=== PATIENT | male | born 1960 | race Caucasian/White ===

== ENCOUNTER 2016-09-20 23:38 | Emergency (ER) | payer MEDICARE ==
[2010-09-09 17:39] VITALS: BMI 24.1
== END 2016-09-21 01:43 | disposition home or self-care (01) ==
LOC: D.ER 23:38
DX: S09.90XA Unspecified injury of head, initial encounter (principal); X58.XXXA Exposure to other specified factors, initial encounter; Y93.89 Activity, other specified; Y92.89 Other specified places as the place of occurrence of the external cause; S01.01XA Laceration without foreign body of scalp, initial encounter; G40.909 Epilepsy, unspecified, not intractable, without status epilepticus

== ENCOUNTER → 2018-04-08 12:57 | Outpatient (CLI) | payer MEDICARE ==
[2010-09-09 17:39] VITALS: BMI 24.1
[2018-04-08 13:34] LABS: BASOPHILS 0.5 % (0-2); HEMATOCRIT 47.9 % (42.0-54.0); HEMOGLOBIN 16.4 g/dL (13.5-17.5); IMMATURE GRANULOCYTES 0.5 % (0-5); LYMPHOCYTES 19.8 % (15-50); MCH 33.1 pg (26.0-34.0); MCHC 34.2 g/dL (31.0-37.0); MCV 96.8 fL (80.0-100.0); MEAN PLATELET VOLUME 10.5 fL (7.4-10.4); MONOCYTES 11.1 % (2-11); NEUTROPHILS 67.1 % (40-80); PLATELET COUNT 176 10x3/uL (130-400); RBC 4.95 10x6/uL (4.20-6.10); RDW 13.5 % (11.5-14.5)
[2018-04-08 13:54] LABS: ALBUMIN 4.1 g/dL (3.4-5.0); ANION GAP 11.5 mmol/L (8-16); BILIRUBIN - TOTAL 0.51 mg/dL (0.2-1.3); CALCIUM 8.9 mg/dL (8.5-10.1); CARBON DIOXIDE 26.6 mmol/L (21.0-32.0); CREATININE - SERUM 1.3 mg/dL (0.6-1.3); POTASSIUM - SERUM 4.1 mmol/L (3.5-5.1); PROTEIN - SERUM 6.6 g/dL (6.4-8.2)
== END | disposition home or self-care (01) ==
LOC: D.LAB 12:57
DX: R56.9 Unspecified convulsions (principal)

== ENCOUNTER 2019-02-28 20:23 | Emergency (ER) | payer MEDICARE ==
[~2019-02-28] VITALS: Ht 177.8 cm; Wt 72.7 kg
[2019-02-28 20:26] VITALS: Ht 177.8 cm; Wt 72.7 kg
[2019-02-28] MEDS ORDERED: ZONEGRAN100 MG (21:23)
[2019-02-28] MEDS ORDERED: VIMPAT50 MG PO (21:23)
[2019-02-28] MEDS ORDERED: FOLIC ACID1 MG PO (21:24)
[2019-02-28] MEDS ORDERED: ONFI10 MG (21:24)
[2019-02-28] MEDS ORDERED: TRILEPTAL600 MG (21:25)
[2019-02-28 22:22] LABS: BASOPHILS 0.3 % (0-2); HEMOGLOBIN 13.8 g/dL (13.5-17.5); IMMATURE GRANULOCYTES 0.5 % (0-5); LYMPHOCYTES 11.9 % (15-50); MCH 32.6 pg (26.0-34.0); MCHC 33.7 g/dL (31.0-37.0); MCV 96.9 fL (80.0-100.0); MEAN PLATELET VOLUME 10.1 fL (7.4-10.4); MONOCYTES 9.2 % (2-11); NEUTROPHILS 77.1 % (40-80); PLATELET COUNT 183 10x3/uL (130-400); RBC 4.23 10x6/uL (4.20-6.10); RDW 13.4 % (11.5-14.5); WBC 6.2 10x3/uL (4.8-10.8)
[2019-02-28 22:34] LABS: ALBUMIN 3.6 g/dL (3.4-5.0); ALKALINE PHOSPHATASE 73 U/L (46-116); ALT (SGPT) 27 U/L (10-68); BILIRUBIN - TOTAL 0.31 mg/dL (0.2-1.3); CALC OSMOLALITY 285 mosm/kg (275-300); CALCIUM 8.6 mg/dL (8.5-10.1); CARBON DIOXIDE 29.4 mmol/L (21.0-32.0); CHLORIDE - SERUM 105 mmol/L (98-107); CREATININE - SERUM 1.1 mg/dL (0.6-1.3); GLUCOSE 98 mg/dL (74-106); POTASSIUM - SERUM 4.3 mmol/L (3.5-5.1); PROTEIN - SERUM 6.2 g/dL (6.4-8.2); SODIUM 142 mmol/L (136-145); UREA NITROGEN 22 mg/dL (7-18); eGFR NON AFRICAN AMERICAN 73 mL/min (90-120)
[2019-02-28 22:37] LABS: APPEARANCE CLEAR (CLEAR); BILIRUBIN NEGATIVE (NEGATIVE); COLOR YELLOW (YELLOW); GLUCOSE NEGATIVE (NEGATIVE); KETONE NEGATIVE (NEGATIVE); NITRITE NEGATIVE (NEGATIVE); PROTEIN NEGATIVE (NEGATIVE); UROBILINOGEN NORMAL (NORMAL)
[2019-02-28 22:55] LABS: CKMB 1.1 U/L (0.0-3.6); CREATINE KINASE 252 UL (21-232); MAGNESIUM - SERUM 1.8 mg/dL (1.8-2.4)
[2019-02-28 23:22] VITALS: BP 132/79
== END 2019-02-28 23:22 | disposition home or self-care (01) ==
LOC: D.ER 20:23
PROVIDERS: Family Medicine
DX: G40.909 Epilepsy, unspecified, not intractable, without status epilepticus (principal); T14.8XXA Other injury of unspecified body region, initial encounter; W18.30XA Fall on same level, unspecified, initial encounter; Y93.89 Activity, other specified; Y92.89 Other specified places as the place of occurrence of the external cause